=== PATIENT | female | born 1935 | race Caucasian/White ===

== ENCOUNTER → 2018-08-30 | Outpatient (REF) | payer MEDICARE, OTHER ==
[~2018-08-30] MED LIST: ASPIRIN81 MG PO; CALCIUM 6001 TAB PO; CIPROFLOXACN500 MG PO; FIRST-OMEPRAZ2 MG/ML PO; LISINOPRIL10 MG PO; LOSARTAN/HCT1 TA1 PO; NORVASC PO; PROLIA60 MG/ML SC
[2018-08-30 08:24] LABS: HEMATOCRIT 40.6 % (37.0-47.0); HEMOGLOBIN 13.3 g/dl (12.0-16.0); IMMATURE GRANULOCYTES 0.2 % (0.0-5.0); MEAN CELL VOLUME 90.2 fL CALC (80.0-100.0); MEAN CORPUSCULAR HGB 29.6 pG CALC (26.0-32.0); MEAN CORPUSCULAR HGB CONC 32.8 g/L CALC (32.0-36.0); NEUT# 2.37 thou/uL (2.00-7.15); RED BLOOD COUNT 4.5 mill/uL (4.20-5.60); RED CELL DISTRI WIDTH 13.7 % (11.5-15.5)
[2018-08-30 08:54] LABS: ALBUMIN 3.9 g/dL (3.2-5.0); ALKALINE PHOSPHATASE 69 u/l (38-126); ANION GAP 13 (6-22 (CALC)); BILIRUBIN, TOTAL 0.5 mg/dL (0.0-1.4); BUN 22 mg/dL (8-23); BUN/CREATININE RATIO 24 (12-20 (CALC)); CALCULATED LDLCHOLESTEROL 135 mg/dL (62-129 (CALC)); CARBON DIOXIDE 29 mmol/l (22-30); CHLORIDE 103 mmol/l (95-108); CHOLESTEROL HDL RATIO 3.5 (<4.4 (CALC)); CREATININE 0.9 mg/dL (0.5-1.0); GFR 60 ML/MIN (>=60 (CALC)); GFR FOR AFR.AMER. > 60 ML/MIN (>=60 (CALC)); HDL CHOLESTEROL 61 mg/dL (>=40); POTASSIUM 4.5 mmol/l (3.5-5.1); SGOT/AST 20 u/l (9-36); SODIUM 141 mmol/l (137-146); TOTAL CHOLESTEROL 212 mg/dl (0-199); TOTAL PROTEIN 6.7 g/dL (6.3-8.2); TOTAL TRIGLYCERIDES 82 mg/dl (30-149); VLDL CHOLESTROL 16 mg/dl (0-48 (CALC))
[2018-08-30 09:22] LABS: TSH, 3RD GENERATION 4.11 uIU/mL (0.47 - 4.68)
== END | disposition home or self-care (01) ==
LOC: LAB 07:46
PROVIDERS: ATTEND Internal Medicine
DX: E78.49 Other hyperlipidemia (principal)

== ENCOUNTER 2021-01-31 08:40 | Inpatient (IN) | payer MEDICARE, OTHER ==
[~2021-01-31] VITALS: Ht 165.1 cm; Wt 84.0 kg
[2021-01-31] VITALS (8 sets, daily range): BP systolic 97–105; BP diastolic 54–67
[~2021-01-31 08:40] MED LIST changes: +CITALOPRAM10 MG PO; +MELOXICAM7.5 MG PO; +MULTI VITAMN PO; +VITAMIN C1000 MG PO; +XANAX0.25 MG PO
--- NOTE | 2021-01-31 08:45 | NUR ---
TO ROOM FOR TRIAGE
--- NOTE | 2021-01-31 09:00 | NUR ---
POC REVIEWED, CALL DALY AVAILABLE. ASSESSMENT NURSE AT BEDSIDE
--- NOTE | 2021-01-31 09:44 | NUR ---
REPORT TO ОЛЬГА RN
[2021-01-31 09:50] LABS: ALBUMIN 4.1 g/dL (3.2-5.0); ALKALINE PHOSPHATASE 71 u/l (38-126); ANION GAP 17 (6-22 (CALC)); BUN 22 mg/dL (8-23); BUN/CREATININE RATIO 16 (12-20 (CALC)); CARBON DIOXIDE 24 mmol/l (22-30); CHLORIDE 100 mmol/l (95-108); CREATININE 1.3 mg/dL (0.5-1.0); GFR 39 ML/MIN (>=60 (CALC)); GFR FOR AFR.AMER. 47 ML/MIN (>=60 (CALC)); HEMATOCRIT 45.6 % (37.0-47.0); HEMOGLOBIN 15.1 g/dl (12.0-16.0); IMMATURE GRANULOCYTES 0.2 % (0.0-5.0); MEAN CELL VOLUME 87.7 fL CALC (80.0-100.0); MEAN CORPUSCULAR HGB CONC 33.1 g/dL CAL (32.0-36.0); NEUT# 3.79 thou/uL (2.00-7.15); POTASSIUM 3.8 mmol/l (3.5-5.1); RED BLOOD COUNT 5.2 mill/uL (4.20-5.60); SGOT/AST 24 u/l (9-36); SODIUM 137 mmol/l (137-146); TOTAL PROTEIN 7.1 g/dL (6.3-8.2)
--- NOTE | 2021-01-31 09:50 | NUR ---
PATIENT RESTING IN BED, FAMILY AT BEDSIDE, AAOX4 RESP EVEN AND UNLABOORED. NO DISTRESS. VSS. PLAN OF CARE REVIEWED. PATIENT VERBALIZES UNDERSTANDING. AWAITING RESUTLS. WCTM
[2021-01-31 09:51] LABS: BILIRUBIN, TOTAL 0.6 mg/dL (0.0-1.4)
[2021-01-31 09:53] LABS: ACT PARTIAL THROMBO TIME 25.8 SECONDS (20.0-32.5); PROTHROMBIN TIME 10.6 SECONDS (9.0-12.5)
[2021-01-31 10:03] LABS: MYOGLOBIN 58 ng/mL (0 - 62)
--- NOTE | 2021-01-31 10:52 | NUR ---
PATIENT AMBUALTES TO THE BATHROOM, STEADY GAIT NOTED.
[2021-01-31 11:11] LABS: URINE BILIRUBIN - DIPSTICK NEGATIVE (NEGATIVE); URINE BLOOD DIPSTICK NEGATIVE (NEGATIVE); URINE COLOR YELLOW; URINE GLUCOSE - DIPSTICK NEGATIVE (NEGATIVE); URINE KETONE NEGATIVE (NEGATIVE); URINE PROTEIN - DIPSTICK NEGATIVE (NEG-TRACE); URINE SPECIFIC GRAVITY 1.015
[2021-01-31 11:13] LABS: URINE LEUK ESTERASE LARGE (NEGATIVE); URINE NITRITE - DIPSTICK NEGATIVE (Negative)
[2021-01-31 11:20] LABS: URINE SQUAMOUS EPITHELIAL CELL MODERATE EPI/hpf (0-FEW)
--- NOTE | 2021-01-31 12:00 | NUR ---
PATIENT RESTING, NO DISTRESS. WCTM
--- NOTE | 2021-01-31 13:30 | NUR ---
NO CHAGE, PATIENT RESTING, NO DISTRESS
[2021-01-31] MEDS ORDERED: ELIQUIS5 MG PO (13:48)
[2021-01-31] MEDS ORDERED: METOPROL TAR25 MG PO (13:48)
[2021-01-31] MEDS ORDERED: TRAZODONE50 MG PO (13:53)
[2021-01-31] MEDS ORDERED: BUPROPION150 M3 PO (13:54)
--- NOTE | 2021-01-31 14:40 | NUR ---
BP 93/61, HR 100. AWAITING CARDIRICHM URIAH
--- NOTE | 2021-01-31 15:12 | NUR ---
ATTEMPT TO CALL REPORT, WILL CALL BACK
--- NOTE | 2021-01-31 16:00 | NUR ---
REPORT TO KASSIE MERLOS.
--- NOTE | 2021-01-31 16:01 | NUR ---
report received from David Schwartz RN
--- NOTE | 2021-01-31 16:16 | NUR ---
female pt received from ER via stretcher accompanied by David Schwartz RN in stable condition; pt ambulatory to bed with steady gait; admission assessment completed at this time; pt alert and oriented; c/c of substernal chest tightness/ pulling and dizziness; pt admits to pain rating 4/10; no n/v; resp even and unlabored; lungs clear bilat; skin color wnl; ra; hr irreg; strong pulses; no edema noted; afib on monitor; abd soft with bs present; no bm noted per assembly instructions writer; pt admits to last bm yesterday; no urine to inspect at this time; bsc provided; #20 flushed and patent to rac; no redness or edema noted at site; ivf at kvo; skin intact; plan of care explained; pt oriented to bed and call light system; call light within reach; will continue to monitor
--- NOTE | 2021-01-31 16:50 | NUR ---
Dr Barrera called per aligner typewriter in regards to cardizem gtt ordered; pt afib with hr 60-90; sbp 97; cardizem gtt to be held
--- NOTE | 2021-01-31 18:18 | NUR ---
awake sitting on the side of the bed eating dinner; no apparent distress noted; pt offers no complaints; iv intact and patent; no redness or edema noted at site; afib on monitor; call light within reach
--- NOTE | 2021-01-31 19:00 | NUR ---
REPORT GIVEN BY CHELITA. PATIENT RESTING IN BED WITH EYES CLOSED. RESP EVEN AND UNLABORED. NO S/S OF DISTRESS NOTED. IV INFUSING FLUIDS. ALERT AND ORIENTED. PLAN OF CARE DISCUSSED. FALL AND SAFTEY PRECAUTIONS IN PLACE. A-FIB ON TELE. PATIENT INFORMED TO CALL WITH ANY QUESTIONS OR CONCERNS.
--- NOTE | 2021-01-31 19:44 | NUR ---
PATIENT UP TO BEDSIDE COMMODE
--- NOTE | 2021-01-31 20:14 | NUR ---
BETIME MEDICATIONS GIVEN. XANAX REQUESTED. BEDTIME SNACK PROVIDED AND DIET SODA.
[2021-02-01] VITALS: BP 88/61
--- NOTE | 2021-02-01 01:58 | NUR ---
PATIENT RESTING IN BED WUTH EYES CLOSED. RESP EVEN AND UNLABORED. NO S/S OF DISTRESS NOTED. FALL AND SAFTEY PRECAUTIONS IN PLACE.
[2021-02-01 02:00] VITALS: BP 102/67
[2021-02-01 04:00] VITALS: BP 85/54
[2021-02-01 05:50] VITALS: BP 100/56
[2021-02-01 06:38] LABS: HEMATOCRIT 42.7 % (37.0-47.0); HEMOGLOBIN 14.1 g/dl (12.0-16.0); MEAN CELL VOLUME 89.9 fL CALC (80.0-100.0); MEAN CORPUSCULAR HGB 29.7 pG CALC (26.0-32.0); RED BLOOD COUNT 4.75 mill/uL (4.20-5.60); RED CELL DISTRI WIDTH 14.3 % (11.5-15.5)
[2021-02-01 06:40] LABS: CREATININE 1.1 mg/dL (0.5-1.0); POTASSIUM 4.3 mmol/l (3.5-5.1)
[2021-02-01 08:00] VITALS: BP 91/60
--- NOTE | 2021-02-01 08:00 | NUR ---
PATIENT RESTING IN BED AT THIS TIME. HR STILL SHOWING A-FIB AT 84 BEATS/PER MIN. PATIENT DENIES ANY PAIN AT THIS TIME. BP IS 91/60. LUNG LU REMAIN CLEAR. BOWEL SOUNDS ARE PRESENT IN ALL FOUR QUADS. SIDERAILS REMAIN UP X 2 CALL LIGHT IS WIHTIN REACH.
--- NOTE | 2021-02-01 10:21 | NUR ---
PATIENT RESTING IN BED AT THIS TIME. DENEIS ANY NEEDS SIDERAILS ARE UP CALL LIGHT WITHIN REACH.
--- NOTE | 2021-02-01 10:49 | NUR ---
PHYSICAL THERAPY IN TO SEE PATIENT AT THIS TIME. (FRANNIE).
--- NOTE | 2021-02-01 12:22 | NUR ---
PATIENT D/C AT THIS TIME. SHERRI VERBALIZES UNDERSTANDING OF D/C INSTRUCTIONS AT THIS TIME.
--- NOTE | 2021-02-01 13:25 | NUR ---
Discharge instructions given. Patient verbalizes understanding of same. Discharged in condition via Wheelchair to Home with family. All belongings sent with pt. PATIENT VERBALIZED D/C INSTRUCIIONS.
--- NOTE | 2021-02-02 16:33 | NUR ---
FINAL URINE CULTURE SHOWED AEROCOCCUS. CALLED PT, INFORMED THE RESULTS, AND RECOMMENDED AMOXICLLIN 875 MG PO BID X5 DAYS. CALLED IN SCRIPT FOR AMOXICILLIN AT [facility] ON 02/02/21.
== END 2021-02-01 13:20 | disposition home or self-care (01) | DRG 309 ==
LOC: ED 08:40 → ED-I 14:00 → ED 14:57 → ICU 14:58
PROVIDERS: Emergency Medicine; ADMIT Hospitalist; ATTEND Hospitalist
DX: I48.91 Unspecified atrial fibrillation (principal); N17.9 Acute kidney failure, unspecified; I95.2 Hypotension due to drugs; T44.7X5A Adverse effect of beta-adrenoreceptor antagonists, initial encounter; I10 Essential (primary) hypertension; I47.2 Ventricular tachycardia; F41.9 Anxiety disorder, unspecified; E03.9 Hypothyroidism, unspecified; K21.9 Gastro-esophageal reflux disease without esophagitis; Z79.01 Long term (current) use of anticoagulants; Z20.822 Contact with and (suspected) exposure to COVID-19
CPT/HCPCS: J3475

== ENCOUNTER 2021-07-03 15:46 | Emergency (ER) | payer MEDICARE, OTHER ==
[~2021-07-03] VITALS: Ht 165.1 cm; Wt 89.0 kg
[~2021-07-03 15:46] MED LIST changes: +BUPROPION150 M3 PO; +DILTIAZEM HCL60 MG PO; +ELIQUIS5 MG PO; +ESCITALOPRAM OX10 MG PO; +METOPROL TAR25 MG PO; +TRAZODONE50 MG PO
[2021-07-03] MEDS ORDERED: OMEPRAZOLE10 MG PO (16:33)
[2021-07-03] MEDS ORDERED: LEXAPRO10 MG PO (16:33)
[2021-07-03] MEDS ORDERED: PROLIA60 MG/ML SC (16:38)
[2021-07-03 17:02] LABS: HEMATOCRIT 43.6 % (37.0-47.0); HEMOGLOBIN 14.5 g/dl (12.0-16.0); IMMATURE GRANULOCYTES 0.1 % (0.0-5.0); MEAN CELL VOLUME 89.7 fL CALC (80.0-100.0); MEAN CORPUSCULAR HGB 29.8 pG CALC (26.0-32.0); MEAN CORPUSCULAR HGB CONC 33.3 g/dL CAL (32.0-36.0); NEUT# 4.44 thou/uL (2.00-7.15); RED BLOOD COUNT 4.86 mill/uL (4.20-5.60); RED CELL DISTRI WIDTH 14.2 % (11.5-15.5)
[2021-07-03 17:20] LABS: ALBUMIN 4.3 g/dL (3.2-5.0); ALKALINE PHOSPHATASE 106 u/l (38-126); AMYLASE 74 u/l (30-110); ANION GAP 14 (6-22 (CALC)); BUN 14 mg/dL (8-23); BUN/CREATININE RATIO 13 (12-20 (CALC)); CARBON DIOXIDE 25 mmol/l (22-30); CHLORIDE 101 mmol/l (95-108); CREATININE 1.1 mg/dL (0.5-1.0); GFR 47 ML/MIN (>=60 (CALC)); GFR FOR AFR.AMER. 57 ML/MIN (>=60 (CALC)); LIPASE 95 u/l (23-300); POTASSIUM 3.7 mmol/l (3.5-5.1); SGOT/AST 23 u/l (9-36); SODIUM 136 mmol/l (137-146)
[2021-07-03 17:22] LABS: ACT PARTIAL THROMBO TIME 25.6 SECONDS (20.0-32.5); PROTHROMBIN TIME 10.3 SECONDS (9.0-12.5); TOTAL PROTEIN 8.2 g/dL (6.3-8.2)
[2021-07-03 18:09] LABS: URINE BILIRUBIN - DIPSTICK NEGATIVE (NEGATIVE); URINE BLOOD DIPSTICK NEGATIVE (NEGATIVE); URINE COLOR YELLOW; URINE GLUCOSE - DIPSTICK NEGATIVE (NEGATIVE); URINE KETONE NEGATIVE (NEGATIVE); URINE PH 7.5 (4.5-8.0); URINE PROTEIN - DIPSTICK NEGATIVE (NEG-TRACE); URINE SPECIFIC GRAVITY 1.015; URINE UROBILINOGEN - DIPSTICK 0.2 E.U./dL (0.2)
[2021-07-03 18:10] LABS: URINE LEUK ESTERASE SMALL (NEGATIVE); URINE NITRITE - DIPSTICK NEGATIVE (Negative)
[2021-07-03 18:16] LABS: URINE RBC 0-2 RBC/hpf (0-5); URINE SQUAMOUS EPITHELIAL CELL FEW EPI/hpf (0-FEW)
[2021-07-03] MEDS ORDERED: KEFLEX500 MG PO (18:23)
[2021-07-03] MEDS ORDERED: ZOFRAN4 MG/TAB PO (18:30)
[2021-07-03 18:55] VITALS: BP 137/86
== END 2021-07-03 19:07 | disposition home or self-care (01) ==
LOC: ED 15:46
DX: N39.0 Urinary tract infection, site not specified (principal); I48.91 Unspecified atrial fibrillation; I10 Essential (primary) hypertension; E78.5 Hyperlipidemia, unspecified; Z79.01 Long term (current) use of anticoagulants; Z20.822 Contact with and (suspected) exposure to COVID-19

== ENCOUNTER 2023-08-19 10:14 | Inpatient (IN) | payer MEDICARE, OTHER ==
[2023-08-19] VITALS (19 sets, daily range): BP systolic 120–163; BP diastolic 54–128
[~2023-08-19] VITALS: Ht 165.1 cm; Wt 91.6 kg
[~2023-08-19 10:14] MED LIST changes: +CARDIZEM CD120 MG PO; -DILTIAZEM HCL60 MG PO; +KEFLEX500 MG PO; +LEXAPRO10 MG PO; +OMEPRAZOLE10 MG PO; +ZOFRAN4 MG/TAB PO
[2023-08-19] MEDS ORDERED: VITAMIN C1000 MG PO (10:51)
[2023-08-19] MEDS ORDERED: ASPIRINCHW 81MG PO (10:52)
[2023-08-19] MEDS ORDERED: CENTRUM ADULTS1 TAB (10:52)
[2023-08-19] MEDS ORDERED: COZAAR100 MG PO (10:53)
[2023-08-19 11:04] LABS: URINE BILIRUBIN - DIPSTICK Negative (NEGATIVE); URINE BLOOD DIPSTICK Small (NEGATIVE); URINE GLUCOSE - DIPSTICK Negative (NEGATIVE); URINE KETONE Trace mg/dL (NEGATIVE); URINE LEUK ESTERASE Trace (NEGATIVE); URINE NITRITE - DIPSTICK Negative (Negative); URINE PROTEIN - DIPSTICK 30 mg/dL (NEG-TRACE)
[2023-08-19 11:09] LABS: GFR FOR AFR.AMER. > 60 ML/MIN (>=60 (CALC)); GFR OTHER RACES 59 ML/MIN (>=60 (CALC))
[2023-08-19 11:19] LABS: ALBUMIN 4.2 g/dL (3.2-5.0); ALKALINE PHOSPHATASE 81 u/l (38-126); ANION GAP 10 (6-22 (CALC)); BUN 17 mg/dL (8-23); BUN/CREATININE RATIO 20 (12-20 (CALC)); CARBON DIOXIDE 26 mmol/l (22-30); CHLORIDE 107 mmol/l (95-108); CREATININE 0.8 mg/dL (0.5-1.0); GFR FOR AFR.AMER. > 60 ML/MIN (>=60 (CALC)); GFR OTHER RACES > 60 ML/MIN (>=60 (CALC)); POTASSIUM 4.3 mmol/l (3.5-5.1); SGOT/AST 40 u/l (9-36); SODIUM 140 mmol/l (137-146); TOTAL PROTEIN 6.9 g/dL (6.3-8.2)
[2023-08-19 11:26] LABS: URINE COLOR Yellow
[2023-08-19 11:27] LABS: URINE EPITHELIAL CELLS MODERATE EPI/hpf (0-FEW); URINE WBC 0-2 WBC/hpf (0-5)
[2023-08-19 11:31] LABS: BASO% 0.4 % (0-3); EOS% 0.4 % (0-8); HEMOGLOBIN 12.4 g/dl (12.0-16.0); IMMATURE GRANULOCYTES 0.1 % (0.0-5.0); LYMPH% 9.3 % (15-41); MEAN CELL VOLUME 93.8 fL CALC (80.0-100.0); MEAN CORPUSCULAR HGB 30.6 pG CALC (26.0-32.0); MEAN CORPUSCULAR HGB CONC 32.6 g/dL CAL (32.0-36.0); MONO% 8.1 % (2-13); NEUT# 6.25 thou/uL (2.00-7.15); NEUT% 81.7 % (42-76); RED BLOOD COUNT 4.05 mill/uL (4.20-5.60); RED CELL DISTRI WIDTH 14.4 % (11.5-15.5)
[2023-08-19 11:38] LABS: BILIRUBIN, TOTAL 0.9 mg/dL (0.02-1.3)
[2023-08-20] VITALS (7 sets, daily range): BP systolic 101–136; BP diastolic 50–76
[2023-08-20 06:42] LABS: BASO% 0.5 % (0-3); EOS% 1.8 % (0-8); HEMATOCRIT 36.6 % (37.0-47.0); HEMOGLOBIN 11.7 g/dl (12.0-16.0); IMMATURE GRANULOCYTES 0.2 % (0.0-5.0); LYMPH% 27.7 % (15-41); MEAN CELL VOLUME 93.6 fL CALC (80.0-100.0); MEAN CORPUSCULAR HGB 29.9 pG CALC (26.0-32.0); MONO% 12.2 % (2-13); NEUT# 3.53 thou/uL (2.00-7.15); NEUT% 57.6 % (42-76); RED BLOOD COUNT 3.91 mill/uL (4.20-5.60); RED CELL DISTRI WIDTH 14.4 % (11.5-15.5)
[2023-08-20 07:14] LABS: ALBUMIN 3.4 g/dL (3.2-5.0); ALKALINE PHOSPHATASE 66 u/l (38-126); ANION GAP 6 (6-22 (CALC)); BILIRUBIN, TOTAL 0.6 mg/dL (0.02-1.3); BUN 15 mg/dL (8-23); BUN/CREATININE RATIO 17 (12-20 (CALC)); CALCULATED LDLCHOLESTEROL 104 mg/dL (62-129 (CALC)); CARBON DIOXIDE 30 mmol/l (22-30); CHLORIDE 107 mmol/l (95-108); CHOLESTEROL HDL RATIO 3.1 (<4.4 (CALC)); CREATININE 0.8 mg/dL (0.5-1.0); GFR FOR AFR.AMER. > 60 ML/MIN (>=60 (CALC)); GFR OTHER RACES > 60 ML/MIN (>=60 (CALC)); HDL CHOLESTEROL 55 mg/dL (39.0-59.0); MAGNESIUM 2.1 mg/dL (1.6-2.3); POTASSIUM 3.5 mmol/l (3.5-5.1); SGOT/AST 29 u/l (9-36); SODIUM 139 mmol/l (137-146); TOTAL PROTEIN 5.8 g/dL (6.3-8.2); TOTAL TRIGLYCERIDES 58 mg/dl (0-149); VLDL CHOLESTROL 12 mg/dl (0-48 (CALC))
[2023-08-20 07:17] LABS: TOTAL CHOLESTEROL 171 mg/dl (0-199)
[2023-08-21 00:06] VITALS: BP 138/74
[2023-08-21 05:22] VITALS: BP 132/71
[2023-08-21 05:41] LABS: BASO% 0.6 % (0-3); EOS% 2.3 % (0-8); HEMATOCRIT 39.3 % (37.0-47.0); IMMATURE GRANULOCYTES 0.2 % (0.0-5.0); LYMPH% 27.2 % (15-41); MEAN CELL VOLUME 93.1 fL CALC (80.0-100.0); MEAN CORPUSCULAR HGB 30.8 pG CALC (26.0-32.0); MEAN CORPUSCULAR HGB CONC 33.1 g/dL CAL (32.0-36.0); MONO% 11.8 % (2-13); NEUT# 3.72 thou/uL (2.00-7.15); NEUT% 57.9 % (42-76); RED BLOOD COUNT 4.22 mill/uL (4.20-5.60); RED CELL DISTRI WIDTH 14.1 % (11.5-15.5)
[2023-08-21 05:51] LABS: ALBUMIN 3.6 g/dL (3.2-5.0); ALKALINE PHOSPHATASE 71 u/l (38-126); ANION GAP 10 (6-22 (CALC)); BILIRUBIN, TOTAL 0.5 mg/dL (0.02-1.3); BUN 18 mg/dL (8-23); BUN/CREATININE RATIO 21 (12-20 (CALC)); CARBON DIOXIDE 29 mmol/l (22-30); CHLORIDE 105 mmol/l (95-108); CREATININE 0.9 mg/dL (0.5-1.0); GFR FOR AFR.AMER. > 60 ML/MIN (>=60 (CALC)); GFR OTHER RACES 59 ML/MIN (>=60 (CALC)); POTASSIUM 3.5 mmol/l (3.5-5.1); SGOT/AST 27 u/l (9-36); SODIUM 140 mmol/l (137-146)
[2023-08-21 06:50] VITALS: BP 144/77
[2023-08-21 10:30] VITALS: BP 151/87
[2023-08-21] MEDS ORDERED: ZOFRAN4 MG/TAB PO (11:06)
[2023-08-21] MEDS ORDERED: OMNICEF300 MG PO (11:07)
[2023-08-21] MEDS ORDERED: LOPRESSOR25 MG PO (11:07)
[2023-08-21] MEDS ORDERED: LASIX20 MG PO (11:07)
== END 2023-08-21 13:29 | disposition home or self-care (01) | DRG 193 ==
LOC: ED 10:14 → ED-I 15:04 → ED 15:37 → MS2 15:38
PROVIDERS: Family Medicine; Nurse Practitioner Family; ADMIT Student in an Organized Health Care Education/Training Program; ATTEND Student in an Organized Health Care Education/Training Program
DX: J18.9 Pneumonia, unspecified organism (principal); I50.33 Acute on chronic diastolic (congestive) heart failure; I48.11 Longstanding persistent atrial fibrillation; N39.0 Urinary tract infection, site not specified; I11.0 Hypertensive heart disease with heart failure; R09.02 Hypoxemia; I08.1 Rheumatic disorders of both mitral and tricuspid valves; E03.9 Hypothyroidism, unspecified; K21.9 Gastro-esophageal reflux disease without esophagitis; E78.5 Hyperlipidemia, unspecified; Z95.818 Presence of other cardiac implants and grafts; Z20.822 Contact with and (suspected) exposure to COVID-19
CPT/HCPCS: J1650; Q9967

== ENCOUNTER 2024-02-05 07:46 | Observation (INO) | payer MEDICARE, OTHER ==
[~2024-02-05] VITALS: Ht 165.1 cm; Wt 91.0 kg
[2024-02-05] VITALS (26 sets, daily range): BP systolic 115–164; BP diastolic 49–115
[~2024-02-05 07:46] MED LIST changes: +ASPIRINCHW 81MG PO; +CENTRUM ADULTS1 TAB; +COZAAR100 MG PO; +LASIX20 MG PO; +LOPRESSOR25 MG PO; +OMNICEF300 MG PO
--- NOTE | 2024-02-05 07:49 | NUR ---
PATIENT TO ROOM 9 VIA EMS
[2024-02-05 08:18] LABS: BASO% 0.8 % (0-3); EOS% 2.3 % (0-8); HEMATOCRIT 44.3 % (37.0-47.0); HEMOGLOBIN 14.7 g/dl (12.0-16.0); IMMATURE GRANULOCYTES 0.5 % (0.0-5.0); LYMPH% 28.8 % (15-41); MEAN CORPUSCULAR HGB 29.9 pG CALC (26.0-32.0); MEAN CORPUSCULAR HGB CONC 33.2 g/dL CAL (32.0-36.0); MONO% 8.1 % (2-13); NEUT# 3.84 thou/uL (2.00-7.15); NEUT% 59.5 % (42-76); RED BLOOD COUNT 4.92 mill/uL (4.20-5.60); RED CELL DISTRI WIDTH 13.8 % (11.5-15.5)
[2024-02-05 08:33] LABS: ALBUMIN 4.5 g/dL (3.2-5.0); BILIRUBIN, TOTAL 0.7 mg/dL (0.02-1.3); CREATININE 1.2 mg/dL (0.5-1.0); POTASSIUM 4.3 mmol/l (3.5-5.1); TOTAL PROTEIN 7.6 g/dL (6.3-8.2)
[2024-02-05] MEDS ORDERED: SODIUM CHLORIDE 0.9% 500 ML IV ONE (09:10)
[2024-02-05] MEDS ORDERED: FUROSEMIDE 40 MG/4 ML SDV IV ONE (10:20)
[2024-02-05] MEDS ORDERED: ACETAMINOPHEN 325 MG/TAB PO PRN (10:45)
[2024-02-05] MEDS ORDERED: MAGNESIUM HYDROXIDE 30 ML UDC PO PRN (10:45)
[2024-02-05] MEDS ORDERED: TOPROL XL25 MG PO (10:46)
[2024-02-05] MEDS ORDERED: Polyethylene Glycol 3350 17 GM/PKT PO PRN (10:50)
[2024-02-05] MEDS ORDERED: ONDANSETRON HCl 4 MG/2 ML SDV IV ONE (11:15)
--- NOTE | 2024-02-05 11:50 | NUR ---
PT IS AOX3, RESPIRATIONS ARE EVEN WITH USE OF ABD MUSCLES, LUNGS ARE CLEAR, BOWEL SOUNDS ARE ACTIVE IN THE LEFT UPPER AND LOWER QUADRANTS, THE RIGHT UPPER AND LOWER BOWEL SOUNDS ARE HYPOACTIVE, PEDAL PULSES ARE PALPABLE TO TOUCH, PT STATES FELT "SHAKY" WITH STANDING, EXPERIENCING SOME SLIGHT NAUSEA. EDUCATED PT TO CALL FOR ASSISTANCE TO GET UP OUT OF BED. CALL LIGHT WITHIN REACH, STAFF ROUNDING IN PLACE. PT RECIEVED ZOFRAN IN ER BEFORE COMING UP TO UNIT. DENIES PAIN AT THIS TIME.
[2024-02-05] MEDS ORDERED: buPROPion HCL 150 MG TAB SR PO SCH (12:00)
[2024-02-05] MEDS ORDERED: PANTOPRAZOLE SODIUM Sesquihydr 40 MG/TAB PO SCH (12:00)
[2024-02-05] MEDS ORDERED: ESCITALOPRAM 10 MG/TAB PO SCH (12:00)
[2024-02-05] MEDS ORDERED: dilTIAZem HCl EXTENDED RELEASE 120 MG CAP PO SCH (12:00)
[2024-02-05] MEDS ORDERED: METOPROLOL SUCCINATE 25 MG/TAB-TOPROL XL PO SCH (12:00)
--- NOTE | 2024-02-05 12:34 | NUR ---
MD AT BEDSIDE DISCUSSING PLAN OF CARE WITH PT AT THIS TIME.
[2024-02-05] MEDS ORDERED: ALPRAZolam 0.5 MG/TAB PO PRN (12:50)
[2024-02-05] MEDS ORDERED: ONDANSETRON HCl 4 MG/2 ML SDV IV PRN (13:05)
[2024-02-05] MEDS ORDERED: Heparin SODIUM (Porcine) 5,000 UNITS/ML SDV SC SCH (14:00)
[2024-02-05 15:39] LABS: URINE BILIRUBIN - DIPSTICK Negative (NEGATIVE); URINE BLOOD DIPSTICK Trace-intact (NEGATIVE); URINE GLUCOSE - DIPSTICK Negative (NEGATIVE); URINE KETONE Negative (NEGATIVE); URINE LEUK ESTERASE Trace (NEGATIVE); URINE NITRITE - DIPSTICK Negative (Negative); URINE PH 7.5 (4.5-8.0); URINE PROTEIN - DIPSTICK Negative (NEG-TRACE)
[2024-02-05 15:40] LABS: URINE COLOR Yellow
--- NOTE | 2024-02-05 15:49 | NUR ---
ORTHOSTATIC BP TAKEN ON PT WITH RESULTS ... LAYING 148/83, HR 94, SITTING 142/88, HR 115, STANDING 132/74, HR 116.
[2024-02-05] MEDS ORDERED: FUROSEMIDE 40 MG/4 ML SDV IV SCH ×2 (17:00)
--- NOTE | 2024-02-05 19:08 | NUR ---
BEDSIDE REPORT RECEIVED FROM OFF GOING NURSE. PATIENT AWAKE IN BED. PATIENT IS ANGOON BUT ABLE TO HEAR BETTER ON LEFT SIDE. ALERT AND ORIENTED X4 AND ROSE TO MAKE NEEDS KNOWN. DENIES PAIN OR DISCOMFORT AT THIS TIME. PATIENT C/O FEELING HUNGRY. SNACK OFFERED AND ACCEPTED BY PATIENT. SAFETY MEASURES IN PLACE. RESPIRATIONS EVEN AND UNLABORED ON ROOM AIR. CALL LIGHT WITHIN REACH.
--- NOTE | 2024-02-05 23:03 | NUR ---
PATIENT RESTING IN BED AT THIS TIME WITH EYES CKOSED. RESPIRAIONS EVEN AND UNLABORED ON ROOM AIR. PURE WICK IN PLACE WITH CLEAR YELLOW URINE COLLECTING IN CANISTER. NO SIGNS OF DISTRESS NOTED. CALL LIGHT WITHIN REACH.
[2024-02-06] VITALS (11 sets, daily range): BP systolic 89–138; BP diastolic 49–96
--- NOTE | 2024-02-06 01:30 | NUR ---
PATIENT ASLEEP IN BED A THIS TIME. NO SIGNS OF DISTRESS NOTED. CALL LIGHT WITHIN REACH.
--- NOTE | 2024-02-06 04:57 | NUR ---
PATIENT UP TO HAVE DAILY WEIGHT TAKEN. DENIES PAIN OR DISCOMFORT. NO SIGNS OF DISTRESS NOTED. CALL LIGHT WITHIN REACH.
[2024-02-06 05:24] LABS: BASO% 0.3 % (0-3); EOS% 1.8 % (0-8); HEMATOCRIT 43.5 % (37.0-47.0); HEMOGLOBIN 14.4 g/dl (12.0-16.0); IMMATURE GRANULOCYTES 0.2 % (0.0-5.0); LYMPH% 35.1 % (15-41); MEAN CELL VOLUME 91.2 fL CALC (80.0-100.0); MEAN CORPUSCULAR HGB 30.2 pG CALC (26.0-32.0); MEAN CORPUSCULAR HGB CONC 33.1 g/dL CAL (32.0-36.0); MONO% 12.6 % (2-13); NEUT# 3.06 thou/uL (2.00-7.15); RED BLOOD COUNT 4.77 mill/uL (4.20-5.60); RED CELL DISTRI WIDTH 13.6 % (11.5-15.5)
[2024-02-06 05:41] LABS: ALBUMIN 4.2 g/dL (3.2-5.0); BILIRUBIN, TOTAL 0.7 mg/dL (0.02-1.3); CREATININE 1.3 mg/dL (0.5-1.0); MAGNESIUM 2.1 mg/dL (1.6-2.3); TOTAL PROTEIN 6.9 g/dL (6.3-8.2)
--- NOTE | 2024-02-06 07:43 | NUR ---
PT AOX4, RESPIRATIONS ARE EVEN AND UNLABORED, LUNGS ARE CLEAR, BOWEL SOUNDS ARE HYPOACTIVE ON THE RIGHT UPPER AND LOWER, ACTIVE ON THE LEFT UPPER AND LOWER, PEDAL PULSES ARE PALPABLE TO TOUCH. PT DENIES ANY NAUSEA OR PAIN AT THIS TIME.
--- NOTE | 2024-02-06 08:59 | NUR ---
PRN XANAX GIVEN FOR ANXIETY.
[2024-02-06] MEDS ORDERED: LOSARTAN Potassium 50 MG/TAB PO SCH (09:00)
--- NOTE | 2024-02-06 09:41 | NUR ---
CONTACTED BRIGHT PARDO IN REFERENCE TO A CARDIOLOGY CONSULT FOR DR ANN. YESI ADVISED SHE WAS AWARE OF THE CONSULT AND WOULD RETURN FOR THE PATIENT LATER THIS DATE.
--- NOTE | 2024-02-06 13:09 | NUR ---
PT NAPPING AT TIS TIME.
--- NOTE | 2024-02-06 13:38 | NUR ---
IV DC'D, TELE BOX REMOVED, PT'S RIDE IS HERE. REINFORCED DISCHARGE INSTRUCTIONS.
--- NOTE | 2024-02-06 19:43 | NUR ---
nurse notified of patient blood pressure.
--- NOTE | 2024-02-06 20:00 | NUR ---
RESTING IN BED. ALERT ORIENTED X4. RESP EVEN AND UNLABORED. B/P RUNNING SLIGHTLY LOW. ASYMPTOMATIC. PUREWIK IN PLACE.
[2024-02-07] VITALS (8 sets, daily range): BP systolic 83–113; BP diastolic 37–66
--- NOTE | 2024-02-07 | NUR ---
RESTING IN BED. XANAX GIVEN PER REQUEST. PUREWIK IN PLACE. CALL LIGHT IN REACH.
--- NOTE | 2024-02-07 04:00 | NUR ---
NO C/O NOTED. RESTING WELL. CALL LIGHT IN REACH.
[2024-02-07 05:12] LABS: BASO% 0.5 % (0-3); EOS% 3.2 % (0-8); HEMATOCRIT 44.3 % (37.0-47.0); HEMOGLOBIN 14.6 g/dl (12.0-16.0); IMMATURE GRANULOCYTES 0.2 % (0.0-5.0); LYMPH% 35.1 % (15-41); MEAN CELL VOLUME 91.3 fL CALC (80.0-100.0); MEAN CORPUSCULAR HGB 30.1 pG CALC (26.0-32.0); MONO% 12.1 % (2-13); NEUT# 3.06 thou/uL (2.00-7.15); NEUT% 48.9 % (42-76); RED BLOOD COUNT 4.85 mill/uL (4.20-5.60); RED CELL DISTRI WIDTH 13.8 % (11.5-15.5)
[2024-02-07 05:28] LABS: BILIRUBIN, TOTAL 0.6 mg/dL (0.02-1.3); CREATININE 1.8 mg/dL (0.5-1.0); POTASSIUM 3.8 mmol/l (3.5-5.1); TOTAL PROTEIN 6.7 g/dL (6.3-8.2)
--- NOTE | 2024-02-07 07:10 | NUR ---
WAS NOTIFIED PATIENT HAD 12 BEATS OF VTACH BY TELE ASBESTOS PIPE SUPERVISOR. PATIENT WAS ASYMPTOMATIC. MD NOTIFIED.
--- NOTE | 2024-02-07 08:00 | NUR ---
PT IN BED WITH HOB UP EATING BREAKFAST, PT IS ALERT AND ORIENTED X 3. PT HAS TELE ON WITH ALL LEADS ATTACHED. IV SITE TO LAC CLEAN AND INTACT, SL. PT LUNGS DIMINISHED AND BREATHING IS NON LABORED AT THIS TIME. PT ABD IS SOFT WITH ACTIVE BS. PT HAS +1 EDEDMA TO BLE. PT AMBULATES WELL TO BATHROOM FOR ALL TOIELTING NEEDS WITH STANDBY ASSIST. PT HAS CALL LIGHT WITHIN REACH AND SAFETY MEASURES IN PLACE AT THIS TIME.
--- NOTE | 2024-02-07 12:00 | NUR ---
PT SITTING UP IN CHAIR. PT HAS NO C/O PAIN. PT HAS CALL LIGHT WITHIN REACH AND SAFETY MEASURES IN PLACE AT THIS TIME.
--- NOTE | 2024-02-07 16:00 | NUR ---
PT IN BED RESTING, EYES OPENED TO VOICE. PT HAS NO C/O PAIN AT THIS TIME. PT HAS CALL LIGHT WITHIN REACH AND SAFETY MEASURES IN PLACE AT THIS TIME.
--- NOTE | 2024-02-07 20:00 | NUR ---
BEDSIDE SHIFT REPORT COMPLETED. DENIES PAIN OR DISCOMFORT. CALL LIGHT IN REACH.
--- NOTE | 2024-02-07 22:00 | NUR ---
BEDSIDE SHIFT REPORT COMPLETED. RESP EVEN AND UNLABORED. DENIES PAIN OR DISCOMFORT. CALL LIGHT IN REACH.
--- NOTE | 2024-02-07 22:00 | NUR ---
VAHIDNAX GIVEN PER REQUEST FOR SLEEP. STATES SHE ALWAYS TAKES ON AT BEDTIME. ABLE TO TRANSFER TO BEDSIDE COMMODE WITH STANDBY ASSIST. CONTINUES TO BE IN AFIB OF TELEMETRY. CALL LIGHT IN REACH.
--- NOTE | 2024-02-07 23:39 | NUR ---
RESTING IN BED. ALERT ORIENTED. RESP EVEN AND UNLABORED. CURRENTLY AWAKE WITH TV ON. DENIES PAIN OR DISCOMFORT. HAPPILY ANTICIPATING DISCHARGE IN AM. CALL LIGHT IN REACH.
[2024-02-08 04:03] VITALS: BP 110/51
--- NOTE | 2024-02-08 04:30 | NUR ---
RESTING IN BED. DENIES PAIN OR DISCOMFORT. CALL LIGHT IN REACH. TRANSFERS TO BS WITH STANDBY ASSIST.
[2024-02-08 04:32] VITALS: BP 110/51
[2024-02-08 06:07] LABS: BASO% 0.9 % (0-3); HEMATOCRIT 42.2 % (37.0-47.0); HEMOGLOBIN 13.9 g/dl (12.0-16.0); IMMATURE GRANULOCYTES 0.3 % (0.0-5.0); LYMPH% 38.5 % (15-41); MEAN CELL VOLUME 91.7 fL CALC (80.0-100.0); MEAN CORPUSCULAR HGB 30.2 pG CALC (26.0-32.0); MEAN CORPUSCULAR HGB CONC 32.9 g/dL CAL (32.0-36.0); MONO% 12.3 % (2-13); NEUT# 2.54 thou/uL (2.00-7.15); RED BLOOD COUNT 4.6 mill/uL (4.20-5.60); RED CELL DISTRI WIDTH 13.7 % (11.5-15.5)
[2024-02-08 06:46] LABS: ALBUMIN 3.5 g/dL (3.2-5.0); BILIRUBIN, TOTAL 0.4 mg/dL (0.02-1.3); CREATININE 1.5 mg/dL (0.5-1.0); MAGNESIUM 1.9 mg/dL (1.6-2.3); POTASSIUM 3.9 mmol/l (3.5-5.1)
[2024-02-08 07:01] VITALS: BP 123/45
[2024-02-08] MEDS ORDERED: LOSARTAN Potassium 50 MG/TAB PO SCH (09:00)
[2024-02-08] MEDS ORDERED: LOSARTAN Potassium 25 MG/TAB PO SCH (09:00)
[2024-02-08] MEDS ORDERED: FUROSEMIDE 20 MG/TAB PO SCH (09:00)
[2024-02-08 10:38] VITALS: BP 92/47
[2024-02-08] MEDS ORDERED: LOSARTAN POTASS25 MG PO (10:46)
--- NOTE | 2024-02-08 10:55 | NUR ---
Rounded on pt this morning. pt is A&Ox4 able to make her need known, vvs, denies pain. meds was given per sep order. educated pt on the plan of care.
[2024-02-08] MEDS ORDERED: LOTRISONE CREAM15 G1 EX (11:19)
--- NOTE | 2024-02-12 10:36 | NUR ---
Discharge follow up call completed 02/12/24. Patient states she is doing well and improving each day. Patient is taking prescribed medication as directed without issue. Patient has a follow up appointment with her PCP tomorrow. No needs or concerns verbalized by patient at this time.
== END 2024-02-08 15:05 | disposition home health service (06) ==
LOC: ED 07:46 → ED-I 10:00 → ED 10:41 → MS2 10:42
PROVIDERS: Family Medicine; Nurse Practitioner Family; ADMIT Internal Medicine; ATTEND Internal Medicine
DX: I13.0 Hypertensive heart and chronic kidney disease with heart failure and stage 1 through stage 4 chronic kidney disease, or unspecified chronic kidney disease (principal); I50.33 Acute on chronic diastolic (congestive) heart failure; N18.31 Chronic kidney disease, stage 3a; I48.19 Other persistent atrial fibrillation; E78.5 Hyperlipidemia, unspecified; L21.9 Seborrheic dermatitis, unspecified; K59.02 Outlet dysfunction constipation; F32.A Depression, unspecified; F41.9 Anxiety disorder, unspecified; Z95.818 Presence of other cardiac implants and grafts; K21.9 Gastro-esophageal reflux disease without esophagitis; Z87.01 Personal history of pneumonia (recurrent)

== ENCOUNTER 2024-08-16 10:50 | Emergency (ER) | payer MEDICARE, OTHER ==
[2024-08-16] VITALS (11 sets, daily range): BP systolic 118–145; BP diastolic 53–116
[~2024-08-16] VITALS: Ht 165.1 cm; Wt 98.0 kg
[~2024-08-16 10:50] MED LIST changes: +LOSARTAN POTASS25 MG PO; +LOTRISONE CREAM15 G1 EX; +TOPROL XL25 MG PO
[2024-08-16] MEDS ORDERED: BACITRACIN3.5 GM TOP (15:20)
[2024-08-16] MEDS ORDERED: HYDROCO/APAP1 TA9 PO (15:22)
== END 2024-08-16 15:54 | disposition home or self-care (01) ==
LOC: ED 10:50
DX: T21.03XA Burn of unspecified degree of upper back, initial encounter (principal); M48.56XA Collapsed vertebra, not elsewhere classified, lumbar region, initial encounter for fracture; M25.561 Pain in right knee; I13.0 Hypertensive heart and chronic kidney disease with heart failure and stage 1 through stage 4 chronic kidney disease, or unspecified chronic kidney disease; N18.9 Chronic kidney disease, unspecified; I50.9 Heart failure, unspecified; I48.91 Unspecified atrial fibrillation; E78.5 Hyperlipidemia, unspecified; X19.XXXA Contact with other heat and hot substances, initial encounter; Y92.009 Unspecified place in unspecified non-institutional (private) residence as the place of occurrence of the external cause; Z88.2 Allergy status to sulfonamides